=== PATIENT | female | born 1970 | race Two or more races ===

== ENCOUNTER 2017-02-19 18:30 | Emergency (ER) | payer BC ==
[2017-02-19 18:35] VITALS: BP 178/90
[2017-02-19] MEDS ORDERED: KETO5DRO3 EACHEYE (19:00)
[2017-02-19] MEDS ORDERED: TOBR5DRO2 OD (19:00)
[2017-02-19] MEDS ORDERED: CETI10TA22 PO (19:00)
--- NOTE | 2017-02-19 19:00 | PHYS DOC ---
Past Medical History Past Medical History: Hypertension Past Surgical History: Hysterectomy Alcohol Use: None Drug Use: None Adult General Chief Complaint Chief Complaint: EYE PROBLEMS HPI HPI Patient is a 46 year old female with history of hypertension who presents with bilateral eye itching,redness and drainage that began today patient unable to describe the color of drainage. Patient denies any fever. Review of Systems Review of Systems Constitutional: Denies fever or chills [] Eyes: bilateral eye itching, redness, and drainage Integument: Denies rash or skin lesions [] Neurologic: Denies headache, focal weakness or sensory changes [] Endocrine: Denies polyuria or polydipsia [] Allergies Allergies Allergies Coded Allergies Type Severity Reaction Last Updated Verified No Known Drug Allergies 02/19/17 No Physical Exam Physical Exam Constitutional: Well developed, well nourished, no acute distress, non-toxic appearance. [] EYE: HUBER, bilateral conjunctiva are moderately injected, no drainage noted on exam. Skin: Warm, dry, no erythema, no rash. [] Back: No tenderness, no CVA tenderness. [] Extremities: No tenderness, no cyanosis, no clubbing, ROM intact, no edema. [] Neurologic: Alert and oriented X 3, normal motor function, normal sensory function, no focal deficits noted. [] Psychologic: Affect normal, judgement normal, mood normal. [] Current Patient Data Vital Signs Vital Signs Date Time Temp Pulse Resp B/P (MAP) Pulse Ox O2 Delivery O2 Flow Rate FiO2 02/19/17 18:35 98.3 75 16 95 Room Air 98.3 EKG EKG [] Radiology/Procedures Radiology/Procedures [] Course & Med Decision Making Course & Med Decision Making Pertinent Labs and Imaging studies reviewed. (See chart for details) Patient has bilateral eye redness. Its hard to tell if he has allergic conjunctivitis or bacterial conjunctivitis because she is unable to describe the color of the drainage but states she noted some drainage today. I covered her for both. Discharge her with Zaditor, Zyrtec and tobramycin. Follow-up with chemical laboratory scientist in 1-2 weeks. Cristóbalon Disclaimer Dragon Disclaimer This electronic medical record was generated, in whole or in part, using a voice recognition dictation system. Departure Departure Impression: Primary Impression: Bacterial conjunctivitis of both eyes Additional Impression: Allergic conjunctivitis of both eyes Disposition: HOME, SELF-CARE Condition: STABLE Referrals: MAIKEL HENRY MD Follow-up in one to 2 weeks Patient Instructions: Allergic Conjunctivitis, [id number], Bacterial Conjunctivitis, [id number] Additional Instructions: You were seen for allergic and bacterial conjunctivitis. Please use the prescribed medicines as ordered. Keep your hands clean. Follow-up with the provided eye doctor in 1-2 weeks. Scripts Ketotifen Fumarate (ZADITOR) 5 Ml Drops 1 DROP EACHEYE BID, #5 ML 1 Refill Prov: CEZAR MENDEZ APRN 02/19/17 Tobramycin/Dexamethasone (TOBRADEX EYE DROPS) 5 Ml Drops.susp 1 DROP OD Q4HRS W/A, #5 ML Prov: CEZAR MENDEZ APRN 02/19/17 Cetirizine Hcl (ZYRTEC) 10 Mg Tablet 1 TAB PO DAILY, #30 TAB 2 Refills Prov: CEZAR MENDEZ APRN 02/19/17 Problem Qualifiers CEZAR MENDEZ APRN Feb 19, 2017 19:00
== END 2017-02-19 19:14 | disposition home or self-care (01) ==
LOC: ER 18:30
DX: H10.13 Acute atopic conjunctivitis, bilateral (principal); H10.89 Other conjunctivitis; I10 Essential (primary) hypertension
CPT/HCPCS: 99283

== ENCOUNTER → 2018-11-22 | Outpatient (CLI) | payer BC ==
[~2018-11-22] MED LIST: CETI10TA22 PO; KETO5DRO4 EACHEYE; TOBR5DRO2 OD
--- NOTE | 2018-11-24 14:46 | RAD ---
DATE: 11/22/2018 EXAM: MAMMO RHONDA SCREENING BILATERAL HISTORY: Routine screening COMPARISON: 07/13/2017 This study was interpreted with the benefit of Computerized Aided Detection (CAD). Breast Density: HETERO The breast parenchyma is heterogenously dense, which could reduce sensitivity of mammography. Breast parenchyma level C. FINDINGS: 2-D and 3-D tomosynthesis imaging was performed in CC and MLO projections. No new or enlarging breast densities are seen. No suspicious microcalcifications are evident. IMPRESSION: There is no mammographic evidence of malignancy in either breast. BI-RADS CATEGORY: 1 NEGATIVE RECOMMENDED FOLLOW-UP: 12M 12 MONTH FOLLOW-UP PQRS compliance statement: Patient information was entered into a reminder system with a target due date for the next mammogram. Mammography is a sensitive method for finding small breast cancers, but it does not detect them all and is not a substitute for careful clinical examination. A negative mammogram does not negate a clinically suspicious finding and should not result in delay in biopsying a clinically suspicious abnormality. "Our facility is accredited by the [employer] Mammography Program."
== END | disposition home or self-care (01) ==
LOC: MAMMO 13:53
PROVIDERS: ATTEND Family Medicine
DX: Z12.31 Encounter for screening mammogram for malignant neoplasm of breast (principal)
CPT/HCPCS: 77063; 77067

== ENCOUNTER → 2020-11-20 | Outpatient (CLI) | payer BC ==
[~2020-11-20] MED LIST changes: -CETI10TA22 PO; +CETI10TA74 PO
--- NOTE | 2020-11-20 08:57 | RAD ---
Exam Date: 11/20/2020 6:20 AM US ABDOMEN COMPLETE Indication: Reason: PELVIC PAIN ABDOMINAL PAIN / Spl. Instructions: / History: TECHNIQUE: Multiple longitudinal and transverse sonographic images of the abdomen are submitted for interpretation. FINDINGS: The liver is normal in size and echogenicity. The portal vein is patent, with hepatopetal flow. N o focal intrahepatic abnormality is seen. The gallbladder is normal, without gallstones, gallbladder wall thickening or pericholecystic fluid. There is no biliary ductal dilatation, with the common bile duct measuring 4 mm. The spleen is normal in size and echogenicity. The visualized abdominal aorta, inferior vena cava an d pancreas are within normal limits. There is no upper abdominal ascites. The kidneys are normal in appearance, with the right kidney measuring 9.9 cm and the left kidney measuring 10.3 cm. IMPRESSION: Normal abdominal ultrasound. Electronically signed by: Cooper Sanabria MD (11/20/2020 8:55 AM) [id number]
--- NOTE | 2020-11-20 09:02 | RAD ---
Exam Date: 11/20/2020 6:20 AM US PELVIS COMPLETE Indication: Reason: PELVIC PAIN ABDOMINAL PAIN / Spl. Instructions: / History: TECHNIQUE: Multiple longitudinal and transverse sonographic images were obtained of the pelvis using a transabdominal approach. ovaries bilaterally. IMPRESSION: Reported prior hysterectomy and bilateral salpingo-oophorectomy. No pelvic free fluid or mass is seen. Electronically signed by: Cooper Sanabria MD (11/20/2020 9:00 AM) [id number]
== END ==
LOC: US 06:15
PROVIDERS: ATTEND Family Medicine
DX: R10.2 Pelvic and perineal pain (principal); R10.9 Unspecified abdominal pain
CPT/HCPCS: 76700; 76856

== ENCOUNTER 2021-06-28 11:41 | Emergency (ER) | payer BC ==
[~2021-06-28] VITALS: Ht 157.5 cm; Wt 65.5 kg
[2021-06-28 12:23] LABS: BILIRUBIN,URINE NEGATIVE (NEG); CLARITY,URINE CLEAR; COLOR,URINE YELLOW; NITRITE,URINE NEGATIVE (NEG); PH,URINE 5.5 (<5.0-8.0); PROTEIN,URINE 30 mg/dL (NEG-TRACE); UROBILINOGEN,URINE 0.2 mg/dL (0.2 mg/dL)
[2021-06-28 12:31] LABS: U PREG PATIENT NEGATIVE (NEG)
[2021-06-28 12:33] LABS: BACTERIA,URINE 0 /HPF (0-FEW); RBC,URINE RARE /HPF (0-2); WBC,URINE OCC /HPF (0-4)
[2021-06-28] MEDS ORDERED: IOHEXOL 300 MG/ML 100ML VIAL. IV ONE (13:00)
[2021-06-28] MEDS ORDERED: CONTRAST GIVEN. MC PRN (13:00)
[2021-06-28 13:53] LABS: BASO % 1 % (0-3); EOS # 0.2 x10^3/uL (0.0-0.7); EOS % 3 % (0-3); HEMATOCRIT 39.3 % (36.0-47.0); HEMOGLOBIN 13.5 g/dL (12.0-15.5); LYMPH # 2.8 x10^3/uL (1.0-4.8); LYMPH % 40 % (24-48); MEAN CORPUSCULAR HEMOGLOBIN 28 pg (25-35); MEAN CORPUSCULAR HGB CONC 34 g/dL (31-37); MEAN CORPUSCULAR VOLUME 83 fL (79-100); MONO # 0.4 x10^3/uL (0.0-1.1); MONO % 6 % (0-9); NEUT # 3.5 x10^3/uL (1.8-7.7); NEUT % 50 % (31-73); PLATELET COUNT 359 x10^3/uL (140-400); RED BLOOD COUNT 4.76 x10^6/uL (3.50-5.40); RED CELL DISTRIBUTION WIDTH 13.3 % (11.5-14.5)
[2021-06-28 14:04] LABS: CALCIUM 9.2 mg/dL (8.5-10.1); CREATININE 0.7 mg/dL (0.6-1.0); GFR 88.9; POTASSIUM 3.4 mmol/L (3.5-5.1)
[2021-06-28 14:10] LABS: ALBUMIN 3.8 g/dL (3.4-5.0); ALBUMIN/GLOBULIN RATIO 1.1 (1.0-1.7); TOTAL BILIRUBIN 0.6 mg/dL (0.2-1.0); TOTAL PROTEIN 7.4 g/dL (6.4-8.2)
--- NOTE | 2021-06-28 14:18 | PHYS DOC ---
Past Medical History Past Medical History: Hypertension Past Surgical History: Hysterectomy Smoking Status: Never Smoker Alcohol Use: None Drug Use: None General Adult EDM: Chief Complaint: CONSTIPATION HPI: HPI: 50 yo F PMH HTN and HLD presents to the ed with c/o constipation stating she had one small, hard bowel movement this morning and it hurts in her left lower quadrant when she bears down to void. No pain at rest. PSH-SALLY w/BSO. No associated nausea, vomiting, melena or hematochezia. No h/o blood transfusions. Review of Systems: Review of Systems: Constitutional: Denies fever or chills. [] Eyes: Denies change in visual acuity. [] HENT: Denies nasal congestion or sore throat. [] Respiratory: Denies cough or shortness of breath. [] Cardiovascular: Denies chest pain or edema. [] GI: Denies , nausea, vomiting, bloody stools or diarrhea. [] : Denies dysuria, hematuria or vaginal bleeding Musculoskeletal: Denies back pain or joint pain. [] Integument: Denies rash or diaphoresis Neurologic: Denies headache, focal weakness or sensory changes. [] Endocrine: Denies polyuria or polydipsia. [] Lymphatic: Denies swollen glands. [] Psychiatric: Denies depression or anxiety. [] Heart Score: C/O Chest Pain: No Risk Factors: Risk Factors: DM, Current or recent (<one month) smoker, HTN, HLP, family his tory of CAD, obesity. Risk Scores: Score 0 - 3: 2.5% MACE over next 6 weeks - Discharge Home Score 4 - 6: 20.3% MACE over next 6 weeks - Admit for Clinical Observation Score 7 - 10: 72.7% MACE over next 6 weeks - Early Invasive Strategies Current Medications: Current Medications Medications (Trade) Dose Ordered Sig/Dennys Start Time Stop Time Status Last Admin Dose Admin Info (CONTRAST GIVEN -- Rx MONITORING) 1 each PRN DAILY PRN 06/28/21 13:00 06/30/21 12:59 Iohexol (Omnipaque 300 Mg/ml) 75 ml 1X ONCE 06/28/21 13:00 06/28/21 13:01 DC Allergies: Allergies: Allergies Coded Allergies Type Severity Reaction Last Updated Verified No Known Drug Allergies 02/19/17 No Physical Exam: PE: Constitutional: Well developed, well nourished, no acute distress, non-toxic appearance. HENT: Normocephalic, atraumatic, Eyes: EOMI, conjunctiva normal, no discharge. Neck: Normal range of motion, supple, Cardiovascular: S1/2 present, regular rhythm Lungs & Thorax: Speaking in full sentences, bilateral equal chest rise, no tachypnea or increased work of breathing Abdomen: soft, mild left lower quadrant tenderness with no rigidity or guarding Skin: Warm, dry, no erythema, no rash. [] Back: No tenderness, no CVA tenderness. [] Extremities: No tenderness, no cyanosis, no lower extremity edema Neurologic: Alert and oriented X 3, normal motor function, normal sensory function, no focal deficits noted. [] Psychologic: Affect normal, judgement normal, mood -anxious regarding abdominal pain Current Patient Data: Labs: Laboratory Tests Test 06/28/21 12:12 06/28/21 13:45 Urine Collection Type Unknown Urine Color Yellow Urine Clarity Clear Urine pH 5.5 (<5.0-8.0) Urine Specific [place] 1.025 (1.000-1.030) Urine Protein 30 mg/dL (NEG-TRACE) Urine Glucose (UA) Negative mg/dL (NEG) Urine Ketones (Stick) Negative mg/dL (NEG) Urine Blood Trace (NEG) Urine Nitrite Negative (NEG) Urine Bilirubin Negative (NEG) Urine Urobilinogen Dipstick 0.2 mg/dL (0.2 mg/dL) Urine Leukocyte Esterase Negative (NEG) Urine RBC Rare /HPF (0-2) Urine WBC Occ /HPF (0-4) Urine Squamous Epithelial Cells Many /LPF Urine Bacteria 0 /HPF (0-FEW) Urine Mucus Marked /LPF Urine Test Negative (NEG) White Blood Count 7.0 x10^3/uL (4.0-11.0) Red Blood Count 4.76 x10^6/uL (3.50-5.40) Hemoglobin 13.5 g/dL (12.0-15.5) Hematocrit 39.3 % (36.0-47.0) Mean Corpuscular Volume 83 fL (79-100) Mean Corpuscular Hemoglobin 28 pg (25-35) Mean Corpuscular Hemoglobin Concent 34 g/dL (31-37) Red Cell Distribution Width 13.3 % (11.5-14.5) Platelet Count 359 x10^3/uL (140-400) Neutrophils (%) (Auto) 50 % (31-73) Lymphocytes (%) (Auto) 40 % (24-48) Monocytes (%) (Auto) 6 % (0-9) Eosinophils (%) (Auto) 3 % (0-3) Basophils (%) (Auto) 1 % (0-3) Neutrophils # (Auto) 3.5 x10^3/uL (1.8-7.7) Lymphocytes # (Auto) 2.8 x10^3/uL (1.0-4.8) Monocytes # (Auto) 0.4 x10^3/uL (0.0-1.1) Eosinophils # (Auto) 0.2 x10^3/uL (0.0-0.7) Basophils # (Auto) 0.0 x10^3/uL (0.0-0.2) Sodium Level 139 mmol/L (136-145) Potassium Level 3.4 mmol/L (3.5-5.1) L Chloride Level 102 mmol/L (98-107) Carbon Dioxide Level 31 mmol/L (21-32) Anion Gap 6 (6-14) Blood Urea Nitrogen 24 mg/dL (7-20) H Creatinine 0.7 mg/dL (0.6-1.0) Estimated GFR (Cockcroft-Gault) 88.9 BUN/Creatinine Ratio 34 (6-20) H Glucose Level 88 mg/dL (70-99) Calcium Level 9.2 mg/dL (8.5-10.1) Total Bilirubin Pending Aspartate Amino Transferase (AST) Pending Alanine Aminotransferase (ALT) Pending Alkaline Phosphatase Pending Total Protein Pending Albumin Pending Albumin/Globulin Ratio Pending Laboratory Tests 06/28/21 13:45 Laboratory Tests 06/28/21 13:45 Vital Signs: Vital Signs Date Time Temp Pulse Resp B/P (MAP) Pulse Ox O2 Delivery O2 Flow Rate FiO2 06/28/21 12:05 98.2 69 15 113/60 (77) 100 Room Air 98.2 EKG: EKG: [] Radiology/Procedures: Radiology/Procedures: IMAGING REPORT Signed PATIENT: EARL OJEDACOUNT: [id number] : 1970 LOCATION: ER AGE: 50 SEX: F EXAM STATUS: REG ER ORD. PHYSICIAN: JOCELIN HAQUE DO REASON: constipation PROCEDURE: CT ABD PELV W/ IV CONTRST ONLY EXAMINATION: CT ABDOMEN+PELVIS W CLINICAL HISTORY: Constipation TECHNIQUE: CT of the abdomen and pelvis was performed using standard technique, scanning from just above the dome of the diaphragm to the symphysis pubis following administration of intravenous contrast. CT Dose Reduction Employed: One or more of the following individualized dose reduction techniques were utilized for this examination: 1. Automated exposure control 2. Adjustment of the mA and/or kV according to patient size 3. Use of iterative reconstruction technique. COMPARISON: Abdominal and pelvic ultrasounds 11/20/2020 FINDINGS: Mild dependent bibasilar subsegmental atelectasis. Liver, gallbladder, pancreas, spleen, adrenal glands, and kidneys unremarkable. Minimally filled urinary bladder suboptimally evaluated. Hysterectomy. No bowel dilation or definite wall thickening. Mild stranding at the level of the rectosigmoid colon, nonspecific. Mild stool throughout the colon. Normal appendix. Minimal arterial atherosclerotic calcification without aneurysm. Multilevel thoracolumbar degenerative changes. IMPRESSION: No definitive evidence of acute abdominopelvic abnormality. Mild stool throughout the colon and nonspecific stranding adjacent to the rectosigmoid colon. Electronically signed by: Abe Ramsey DO (06/28/2021 2:37 PM) [facility] DICTATED and SIGNED BY: ABE RAMSEY DO DATE: 06/28/21 [id number] 0 Course & Med Decision Making: Course & Med Decision Making Pertinent Labs and Imaging studies reviewed. (See chart for details) Concern for mild constipation on CT imaging which is consistent with patient's benign/well-appearing physical exam. Abdomen soft with no rigidity. Will treat with colon prep via Colace and magnesium citrate. May repeat magnesium citrate in 24 hours if no bowel movement has occurred. Will discharge home with strict ED return precautions were given for severe abdominal pain, dehydration, nausea or vomiting or fever. Encouraged urgent outpatient follow-up with PMD and GI for definitive management. Life-threatening processes were considered but are low suspicion at this time, given history, physical exam and ED workup. Pt was educated on all prescription medications and adverse effects. All patient's questions were answered and pt was stable at time of discharge. Life/limb-threatening differential includes but is not limited to, aortic dissection, aortic aneurysm, acute coronary syndrome, surgical abdomen (appendicitis, cholecystitis, ischemic bowel, strangulated hernia, etc), bowel obstruction or volvulus, bladder outlet obstruction, gastrointestinal bleeding, inflammatory bowel disease, peptic ulcer disease, ACS/CAD, sepsis, diverticular disease, ureterolithiasis, nephrolithiasis, ovarian or testicular torsion, ectopic , vaginal hemorrhage, or genitourinary infection. I have spoken with the patient and/or caregivers. I explained the patient's condition, diagnoses and treatment plan based on the information available to me at this time. I have answered the patient and/or caregiver's questions and addressed any concerns. The patient and/or caregivers have a good understanding of patient's diagnosis, condition and treatment plan as can be expected at this point. Vital signs have been stable. Patient's condition is stable and appropriate for discharge from the emergency department. Patient will pursue further outpatient evaluation with primary care physician or other designated or consulting physician as outlined in the discharge instructions. The patient and/or caregivers are agreeable to this plan of care and follow-up instructions have been explained in detail. The patient and/or caregivers have received these instructions in written form and have expressed an understanding of the discharge instructions. The patient and/or caregivers are aware that any significant change of condition or worsening of symptoms should prompt immediate return to this or the closest emergency department or call to 911. Kings Disclaimer: Kings Disclaimer: This electronic medical record was generated, in whole or in part, using a voice recognition dictation system. Departure Departure Impression: Primary Impression: Constipation Additional Impression: Intermittent left lower quadrant abdominal pain Disposition: HOME / SELF CARE / HOMELESS Condition: STABLE Referrals: PADMAJA GALINDO MD (PCP) Follow-up with your primary care physician in 24 to 48 hours OR FOLLOW UP WITH FAMILY MEDICINE: [address] [facility] [place] [address] Patient Instructions: Abdominal Pain (Nonspecific), Constipation, Adult Additional Instructions: FOLLOW UP WITH GASTROENTEROLOGY: FOR DEFINITIVE MANAGEMENT of abdominal pain and constipation [facility] [address] [place] [address] EMERGENCY DEPARTMENT GENERAL DISCHARGE INSTRUCTIONS Thank you for coming to [facility] Emergency Department (ED) today and trusting us with you care. We trust that you had a positive experience in our Emergency Department. If you wish to speak to the department management, you may call the Director at [phone]. YOUR FOLLOW UP INSTRUCTIONS ARE FOLLOWS: 1. Do you have a private Doctor? If you do not have a private doctor, please ask for a resource list of physicians or clinics that may be able to assist you with follow up care. 2. The Emergency Physicain has interpreted your x-rays. The X-Ray specialist will also review them. If there is a change in the findings, you will be notified in 48 hours when at all possible. 3. A lab test or culture has been done, your results will be reviewed and you will be notified if you need a change in treatment. ADDITIONAL INSTRUCTIONS AND INFORMATION: 1. Your care today has been supervised by a physician who is specially trained in emergency care. Many problems require more than one evaluation for a complete diagnosis and treatment. We recommend that you schedule your follow up appointment as recommended to ensure complete treatment of you illness or injury. If you are unable to obtain follow up care and continue to have a problem, or if your condition worsens, we recommend that you return to the ED. 2. We are not able to safely determine your condition over the phone nor are we able to give sound medical advice over the phone. For these safety reasons, if you call for medical advice we will ask you to come to the ED for further evaluation. 3. If you have any questions regarding these discharge instructions please call the ED at [phone]. SAFETY INFORMATION: In the interest of safety, wellness, and injury prevention; we encourage you to wear your sealbelt, if you smoke; quite smoking, and we encourage family to use a protective helmet for bicycling and other sporting events that present an increased risk for head injury. IF YOUR SYMPTOMS WORSEN OR NEW SYMPTOMS DEVELOP, OR YOU HAVE CONCERNS ABOUT YOUR CONDITION; OR IF YOUR CONDITION WORSENS WHILE YOU ARE WAITING FOR YOUR FOLLOW UP APPOINTMENT; EITHER CONTACT YOUR PRIMARY CARE DOCTOR, THE PHYSICIAN WHOSE NAME AND NUMBER YOU WERE GIVEN, OR RETURN TO THE ED IMMEDIATELY. Scripts Magnesium Citrate (MAGNESIUM CITRATE) 296 Ml Solution 296 ML PO ONCE, #296 ML Drink 1 bottle every 24 hours as needed for constipation-fill this is no bowel movement in 24 hours Prov: JOCELIN HAQUE DO 06/28/21 JOCELIN HAQUE DO Jun 28, 2021 14:18
--- NOTE | 2021-06-28 14:39 | RAD ---
EXAMINATION: CT ABDOMEN+PELVIS W CLINICAL HISTORY: Constipation TECHNIQUE: CT of the abdomen and pelvis was performed using standard technique, scanning from just ab ove the dome of the diaphragm to the symphysis pubis following administration of intravenous contrast . CT Dose Reduction Employed: One or more of the following individualized dose reduction techniques wer e utilized for this examination: 1. Automated exposure control 2. Adjustment of the mA and/or kV ac cording to patient size 3. Use of iterative reconstruction technique. COMPARISON: Abdominal and pelvic ultrasounds 11/20/2020 FINDINGS: Mild dependent bibasilar subsegmental atelectasis. Liver, gallbladder, pancreas, spleen, adrenal glands, and kidneys unremarkable. Minimally filled urinary bladder suboptimally evaluated. Hysterectomy. No bowel dilation or definite wall thickening. Mild stranding at the level of the rectosigmoid colon, nonspecific. Mild stool throughout the colon. Normal appendix. Minimal arterial atherosclerotic calcification without aneurysm. Multilevel thoracolumbar degenerative changes. IMPRESSION: No definitive evidence of acute abdominopelvic abnormality. Mild stool throughout the colon and nonspecific stranding adjacent to the rectosigmoid colon. Electronically signed by: Abe Anderson DO (06/28/2021 2:37 PM) [facility]
[2021-06-28] MEDS ORDERED: MAGN296S68 PO (15:59)
[2021-06-28] MEDS ORDERED: MAGNESIUM CITRATE 296 ML SOLUTION. PO ONE (16:00)
[2021-06-28] MEDS ORDERED: DOCUSATE SODIUM 100 MG CAPSULE. PO SCH (16:00)
[2021-06-28] MEDS ORDERED: DOCUSATE SODIUM 100 MG CAPSULE. PO ONE (16:00)
[2021-06-28 16:27] VITALS: BP 124/74
== END 2021-06-28 16:42 | disposition home or self-care (01) ==
LOC: ER 11:41
DX: K59.00 Constipation, unspecified (principal); I10 Essential (primary) hypertension; Z90.710 Acquired absence of both cervix and uterus
CPT/HCPCS: 36415; 74177; 80053; 81001; 81025; 85025; 99285; Q9967